=== PATIENT | male | born 1990 | race Hispanic/Latino ===

== ENCOUNTER 2016-05-01 13:25 | Emergency (ER) | payer OTHER ==
[2016-05-01] MEDS ORDERED: KETOROLAC 30 MG/ML VIAL ONE (14:08)
[2016-05-01] MEDS ORDERED: SODIUM CHLORIDE 0.9% 1,000 ML ONE (14:08)
== END 2016-05-01 16:01 | disposition home or self-care (01) ==
LOC: ER 13:25
DX: J01.20 Acute ethmoidal sinusitis, unspecified (principal); Z79.899 Other long term (current) drug therapy
CPT/HCPCS: 36415; 70450; 72100; 80053; 85025; 85652; 96361; 96374; 99284; J1885